=== PATIENT | female | born 1985 | race Caucasian/White ===

== ENCOUNTER 2018-03-11 14:17 | Inpatient (IN) | payer MEDICAID ==
[2018-03-11] MEDS: LACTATED RINGER'S 1,000 ML IV ×2 (15:20→23:00)
[2018-03-11] MEDS: ONDANSETRON 4 MG INJ IV (15:23)
[2018-03-11 15:27] LABS: ADD UMIC YES; UR ASCORBIC ACID 40 mg/dL (NEGATIVE); UR BACTERIA FEW /HPF (NONE SEEN); UR BILIRUBIN (Dip) NEGATIVE (NEGATIVE); UR BLOOD (Dip) NEGATIVE (NEGATIVE); UR CALCIUM OXALATE CRYSTAL MANY /HPF (NONE SEEN); UR CLARITY SLIGHTLY CLOUDY (CLEAR); UR COLOR YELLOW (YELLOW); UR GLUCOSE (Dip) NEGATIVE (NEGATIVE); UR KETONES (Dip) 1+ mg/dL (NEGATIVE); UR LEUKOCYTE ESTERASE (Dip) NEGATIVE Leu/ul (NEGATIVE); UR NITRITE (Dip) NEGATIVE (NEGATIVE); UR RBC 7 /HPF (0-5); UR SPECIFIC GRAVITY (Dip) 1.025 (1.003-1.030); UR SQUAMOUS EPITHELIAL CELL FEW /HPF (FEW); UR TOTAL PROTEIN (Dip) 1+ mg/dl (NEGATIVE); UR UROBILINOGEN (Dip) NEGATIVE (NEGATIVE); UR WBC 7 /HPF (0-5)
[2018-03-11 19:06] LABS: ADD MAN DIFF? NO
[2018-03-11 19:14] LABS: BASOPHILS % 0.2 % (0.0-2.0); EOSINOPHILS % 0.1 % (0.0-7.0); HEMATOCRIT 34.9 % (37.0-47.0); LYMPHOCYTES % 5.4 % (15.0-51.0); MEAN CORPUSCULAR HEMOGLOBIN 31.8 pg (29.0-33.0); MEAN CORPUSCULAR HGB CONC 34.4 g/dl (32.0-37.0); MEAN CORPUSCULAR VOLUME 92.6 fl (82.0-101.0); MEAN PLATELET VOLUME 9.4 fl (7.4-10.4); MONOCYTE # 0.3 10^3/ul (0.3-0.9); MONOCYTES % 1.8 % (0.0-11.0); NEUTROPHIL # 17.3 10^3/ul (1.6-7.5); NEUTROPHILS % 91.8 % (39.0-77.0); PLATELET COUNT 262 10^3/UL (140-415); RED BLOOD COUNT 3.77 10^6/ul (4.20-5.40); RED CELL DISTRIBUTION WIDTH 12.6 % (11.5-14.5)
[2018-03-11 19:14] LABS: WHITE BLOOD COUNT 18.9 10^3/ul (4.8-10.8)
[2018-03-11 19:33] LABS: ALANINE AMINOTRANSFERASE 24 IU/L (13-69); ALBUMIN 3.5 g/dl (3.3-4.9); ALBUMIN/GLOBULIN RATIO 1.16; ALKALINE PHOSPHATASE 95 IU/L (42-121); AMYLASE 56 U/L (11-123); ANION GAP 12 (5-13); ASPARTATE AMINO TRANSFERASE 21 IU/L (15-46); BILIRUBIN,INDIRECT 0.1 mg/dl (0-1.1); BILIRUBIN,TOTAL 0.1 mg/dl (0.2-1.3); BLOOD UREA NITROGEN 13 mg/dl (7-20); CALCIUM 9.1 mg/dl (8.4-10.2); CARBON DIOXIDE 22 mmol/L (21-31); CHLORIDE 104 mmol/L (97-110); CREATININE 0.68 mg/dl (0.44-1.00); Estimated GFR > 60 mL/min (>60); GLUCOSE 120 mg/dl (70-220); LIPASE 52 U/L (23-300); POTASSIUM 3.8 mmol/L (3.5-5.1); SODIUM 138 mmol/L (135-144); TOTAL PROTEIN 6.5 g/dl (6.1-8.1)
[2018-03-11] MEDS ORDERED: ONDANSETRON 4 MG INJ IV (22:30)
[2018-03-11] MEDS: OSELTAMIVIR 75 MG CAP PO (22:30)
[2018-03-12] MEDS: SOD CHLORIDE 0.9% 1,000 ML IV ×4 (00:51→16:39)
[2018-03-12] MEDS: CEFTRIAXONE 1 GM/50 ML (PMX) 50 ML IVPB (00:52)
[2018-03-12] MEDS: ACETAMINOPHEN 325 MG TAB PO ×2 (02:53→16:39)
[2018-03-12 08:11] LABS: ADD MAN DIFF? NO
[2018-03-12 08:14] LABS: BASOPHILS % 0.2 % (0.0-2.0); EOSINOPHILS % 0.2 % (0.0-7.0); HEMATOCRIT 30.3 % (37.0-47.0); HEMOGLOBIN 10.5 g/dl (12.0-16.0); LYMPHOCYTES # 1.8 10^3/ul (0.8-2.9); LYMPHOCYTES % 9.4 % (15.0-51.0); MEAN CORPUSCULAR HEMOGLOBIN 31.9 pg (29.0-33.0); MEAN CORPUSCULAR HGB CONC 34.7 g/dl (32.0-37.0); MEAN CORPUSCULAR VOLUME 92.1 fl (82.0-101.0); MEAN PLATELET VOLUME 9.6 fl (7.4-10.4); MONOCYTE # 1.3 10^3/ul (0.3-0.9); MONOCYTES % 6.8 % (0.0-11.0); NEUTROPHIL # 15.5 10^3/ul (1.6-7.5); NEUTROPHILS % 82.6 % (39.0-77.0); PLATELET COUNT 263 10^3/UL (140-415); RED BLOOD COUNT 3.29 10^6/ul (4.20-5.40); RED CELL DISTRIBUTION WIDTH 12.8 % (11.5-14.5)
[2018-03-12 08:14] LABS: WHITE BLOOD COUNT 18.8 10^3/ul (4.8-10.8)
[2018-03-12] MEDS ORDERED: OSELTAMIVIR 75 MG CAP PO (09:00)
[2018-03-12] MEDS: OSELTAMIVIR 75 MG CAP PO ×2 (09:38→20:51)
[2018-03-12] MEDS: PRENATAL VITAMIN PO (09:39)
[2018-03-13] MEDS: SOD CHLORIDE 0.9% 1,000 ML IV ×2 (00:36→09:13)
[2018-03-13] MEDS: CEFTRIAXONE 1 GM/50 ML (PMX) 50 ML IVPB ×2 (00:37→13:14)
[2018-03-13 06:20] LABS: ADD MAN DIFF? NO
[2018-03-13 06:29] LABS: BASOPHIL # 0.1 10^3/ul (0.0-0.1); BASOPHILS % 0.4 % (0.0-2.0); EOSINOPHILS # 0.2 10^3/ul (0.0-0.5); EOSINOPHILS % 1.3 % (0.0-7.0); HEMATOCRIT 30.8 % (37.0-47.0); HEMOGLOBIN 10.4 g/dl (12.0-16.0); LYMPHOCYTES # 2.2 10^3/ul (0.8-2.9); LYMPHOCYTES % 17.9 % (15.0-51.0); MEAN CORPUSCULAR HEMOGLOBIN 31.9 pg (29.0-33.0); MEAN CORPUSCULAR HGB CONC 33.8 g/dl (32.0-37.0); MEAN CORPUSCULAR VOLUME 94.5 fl (82.0-101.0); MEAN PLATELET VOLUME 9.3 fl (7.4-10.4); MONOCYTE # 0.9 10^3/ul (0.3-0.9); MONOCYTES % 6.9 % (0.0-11.0); NEUTROPHIL # 8.9 10^3/ul (1.6-7.5); NEUTROPHILS % 72.9 % (39.0-77.0); PLATELET COUNT 242 10^3/UL (140-415); RED BLOOD COUNT 3.26 10^6/ul (4.20-5.40); RED CELL DISTRIBUTION WIDTH 12.9 % (11.5-14.5)
[2018-03-13 06:29] LABS: WHITE BLOOD COUNT 12.3 10^3/ul (4.8-10.8)
[2018-03-13] MEDS: PRENATAL VITAMIN PO (09:12)
[2018-03-13] MEDS: OSELTAMIVIR 75 MG CAP PO (09:12)
[2018-03-13] MEDS: ACETAMINOPHEN 325 MG TAB PO (11:15)
== END 2018-03-13 15:30 | disposition home or self-care (01) | DRG 833 ==
LOC: OBT 14:17 → L-D 14:19 → OBT 21:05 → PP1 21:05
DX: O23.02 Infections of kidney in pregnancy, second trimester (principal); Z3A.20 20 weeks gestation of pregnancy
CPT/HCPCS: 76705; 76815; 76817; 80053; 81001; 82150; 83690; 85025; 87086; 96360; 96361; 96374

== ENCOUNTER 2018-07-25 03:29 | Inpatient (IN) | payer MEDICAID ==
[2018-07-25 04:08] LABS: ADD UMIC YES; UR ASCORBIC ACID NEGATIVE (NEGATIVE); UR BILIRUBIN (Dip) NEGATIVE (NEGATIVE); UR BLOOD (Dip) 1+ mg/dL (NEGATIVE); UR CLARITY CLEAR (CLEAR); UR COLOR COLORLESS (YELLOW); UR GLUCOSE (Dip) NEGATIVE (NEGATIVE); UR KETONES (Dip) NEGATIVE (NEGATIVE); UR LEUKOCYTE ESTERASE (Dip) NEGATIVE Leu/ul (NEGATIVE); UR NITRITE (Dip) NEGATIVE (NEGATIVE); UR RBC 1 /HPF (0-5); UR SPECIFIC GRAVITY (Dip) 1.004 (1.003-1.030); UR TOTAL PROTEIN (Dip) NEGATIVE (NEGATIVE); UR UROBILINOGEN (Dip) NEGATIVE (NEGATIVE); UR WBC 1 /HPF (0-5)
[2018-07-25] MEDS ORDERED: LACTATED RINGER'S 1,000 ML IV (04:16)
[2018-07-25] MEDS ORDERED: CARBOPROST 250 MCG INJ IM ×2 (04:30→06:00)
[2018-07-25] MEDS ORDERED: IBUPROFEN 600 MG TAB PO (04:30)
[2018-07-25] MEDS ORDERED: MISOPROSTOL 200 MCG TAB PR ×2 (04:30→06:00)
[2018-07-25] MEDS ORDERED: OXYTOCIN 30 UNITS/LR 500 ML IV ×2 (04:30→06:00)
[2018-07-25] MEDS: MINERAL OIL LIGHT 10 ML VIAL TOP (04:30)
[2018-07-25] MEDS ORDERED: METHYLERGONOVINE 0.2 MG INJ IM ×2 (04:30→06:00)
[2018-07-25] MEDS ORDERED: BUTORPHANOL 2 MG INJ IV ×2 (04:30)
[2018-07-25] MEDS ORDERED: LIDOCAINE 1% (MPF) 30 ML INJ INJ (04:30)
[2018-07-25] MEDS: LACTATED RINGER'S 1,000 ML IV (04:44)
[2018-07-25 05:22] LABS: ADD MAN DIFF? NO
[2018-07-25 05:27] LABS: BASOPHIL # 0.1 10^3/ul (0.0-0.1); BASOPHILS % 0.3 % (0.0-2.0); EOSINOPHILS # 0.1 10^3/ul (0.0-0.5); EOSINOPHILS % 0.8 % (0.0-7.0); HEMATOCRIT 38.1 % (37.0-47.0); HEMOGLOBIN 12.9 g/dl (12.0-16.0); LYMPHOCYTES # 2.4 10^3/ul (0.8-2.9); LYMPHOCYTES % 15.9 % (15.0-51.0); MEAN CORPUSCULAR HEMOGLOBIN 30.2 pg (29.0-33.0); MEAN CORPUSCULAR HGB CONC 33.9 g/dl (32.0-37.0); MEAN CORPUSCULAR VOLUME 89.2 fl (82.0-101.0); MEAN PLATELET VOLUME 10.5 fl (7.4-10.4); MONOCYTE # 1.1 10^3/ul (0.3-0.9); NEUTROPHIL # 11.3 10^3/ul (1.6-7.5); NEUTROPHILS % 75.2 % (39.0-77.0); PLATELET COUNT 311 10^3/UL (140-415); RED BLOOD COUNT 4.27 10^6/ul (4.20-5.40); RED CELL DISTRIBUTION WIDTH 14.2 % (11.5-14.5)
[2018-07-25] MEDS: OXYTOCIN 30 UNITS/LR 500 ML IV ×3 (05:39→13:19)
[2018-07-25 05:48] LABS: INR 0.89; PROTIME 12.1 Sec (11.9-14.9); PT RATIO 0.9
[2018-07-25 05:49] LABS: PARTIAL THROMBOPLASTIN TIME 27.6 Sec (23.0-35.0)
[2018-07-25] MEDS: LACTATED RINGER'S 1,000 ML IV* ×2 (05:50→13:50)
[2018-07-25 06:18] LABS: HEPATITIS B SURFACE ANTIGEN NEGATIVE (NEGATIVE)
[2018-07-25] MEDS: IBUPROFEN 600 MG TAB PO ×4 (06:23→23:21)
[2018-07-25 16:31] LABS: RAPID PLASMA REAGIN NONREACTIVE (NR)
[2018-07-25] MEDS: HYDROCODONE/APAP (5/325) TAB PO (16:46)
[2018-07-26] MEDS: IBUPROFEN 600 MG TAB PO ×4 (05:46→23:44)
[2018-07-26 08:48] LABS: ADD MAN DIFF? NO
[2018-07-26 08:50] LABS: BASOPHIL # 0.1 10^3/ul (0.0-0.1); BASOPHILS % 0.4 % (0.0-2.0); EOSINOPHILS # 0.2 10^3/ul (0.0-0.5); EOSINOPHILS % 1.3 % (0.0-7.0); HEMATOCRIT 33.4 % (37.0-47.0); HEMOGLOBIN 11.2 g/dl (12.0-16.0); LYMPHOCYTES # 2.4 10^3/ul (0.8-2.9); LYMPHOCYTES % 20.3 % (15.0-51.0); MEAN CORPUSCULAR HEMOGLOBIN 29.9 pg (29.0-33.0); MEAN CORPUSCULAR HGB CONC 33.5 g/dl (32.0-37.0); MEAN CORPUSCULAR VOLUME 89.3 fl (82.0-101.0); MEAN PLATELET VOLUME 9.9 fl (7.4-10.4); MONOCYTES % 8.1 % (0.0-11.0); NEUTROPHIL # 8.2 10^3/ul (1.6-7.5); NEUTROPHILS % 69.1 % (39.0-77.0); PLATELET COUNT 245 10^3/UL (140-415); RED BLOOD COUNT 3.74 10^6/ul (4.20-5.40); RED CELL DISTRIBUTION WIDTH 14.6 % (11.5-14.5)
[2018-07-26 08:50] LABS: WHITE BLOOD COUNT 11.9 10^3/ul (4.8-10.8)
[2018-07-26] MEDS: LANOLIN HPA 1 PKT TOP (09:10)
[2018-07-26] MEDS: DEXTROSE 5%-LR 1,000 ML IV (13:28)
[2018-07-26] MEDS ORDERED: ONDANSETRON 4 MG INJ (20:01)
[2018-07-26] MEDS ORDERED: FENTAnyl 50 MCG/ML VIAL (20:01)
[2018-07-26] MEDS ORDERED: MIDAZOLAM 1 MG/ML 2 ML INJ ×2 (20:01→20:40)
[2018-07-26] MEDS: CEFAZOLIN 2 GM/50 ML (PMX) 50 ML IVPB (20:30)
[2018-07-26] MEDS: HYDROCODONE/APAP (5/325) TAB PO (22:03)
[2018-07-27] MEDS: HYDROCODONE/APAP (5/325) TAB PO (02:06)
[2018-07-27] MEDS: IBUPROFEN 600 MG TAB PO ×2 (05:33→12:26)
[2018-07-27] MEDS: DIPHTH/TET/ACEL PERTUSS (ADULT) 0.5 ML VIAL IM* (12:28)
== END 2018-07-27 15:30 | disposition home or self-care (01) | DRG 798 ==
LOC: OBT 03:29 → L-D 03:29 → OBT 04:10 → L-D 04:10 → PP1 08:38
PROC: 0UB70ZZ Excision of Bilateral Fallopian Tubes, Open Approach (ICD-10-PCS; 2018-07-26 20:00)
PROC: 10E0XZZ Delivery of Products of Conception, External Approach (ICD-10-PCS; principal; 2018-07-26 20:06)
DX: O80 Encounter for full-term uncomplicated delivery (principal); Z37.0 Single live birth; Z3A.39 39 weeks gestation of pregnancy; Z30.2 Encounter for sterilization
CPT/HCPCS: 81001; 85025; 85610; 85730; 86592; 86850; 86900; 86901; 87340; 88302; 90715; 99464